=== PATIENT | female | born 1990 | race Hispanic/Latino ===

== ENCOUNTER 2017-05-29 17:13 | Emergency (ER) | payer OTHER ==
[2017-05-29 17:22] VITALS: BMI 25.4
[2017-05-29 17:41] VITALS: BP 124/81
--- NOTE | 2017-05-29 18:03 | ED PDOC ---
"Arrival/HPI - General Chief Complaint: Breast Problem Time Seen by Provider: 05/29/17 17:48 Historian: Patient - History of Present Illness Narrative History of Present Illness (Text): 05/29/17 18:00 27 y/o female, no significant pmh, post 9 months, c/o bilateral breast pain x 5 months. Pt. stated she was breast feeding about 5 months ago, stop breast feeding, been having bilateral breast engorging and pain, no numbness or tingling, no night sweat, no dizziness, no rash, no night sweat, no numbness or tingling, no other medical or psychological complaints. Past Medical History - Provider Review Nursing Documentation Reviewed: Yes - Cardiac Hx Cardiac Disorders: No - Pulmonary Hx Respiratory Disorders: No - Neurological Hx Neurological Disorder: No - HEENT Hx HEENT Disorder: No - Renal Hx Renal Disorder: No - Endocrine/Metabolic Hx Endocrine Disorders: No - Hematological/Oncological Hx Blood Disorders: No - Integumentary Hx Dermatological Disorder: No - Musculoskeletal/Rheumatological Hx Musculoskeletal Disorders: No - Gastrointestinal Hx Gastrointestinal Disorders: No - Genitourinary/Gynecological Hx Genitourinary Disorders: No - Psychiatric Hx Psychophysiologic Disorder: No Hx Substance Use: No Family/Social History - Physician Review Nursing Documentation Reviewed: Yes Family/Social History: Unknown Family HX Smoking Status: Current Some Days Smoker Hx Alcohol Use: No Hx Substance Use: No Allergies/Home Meds Allergies/Adverse Reactions: Allergies No Known Allergies Allergy (Verified 05/29/17 17:22) Review of Systems - Review of Systems Constitutional: absent: Fatigue, Fevers Eyes: absent: Vision Changes ENT: absent: Hearing Changes Respiratory: absent: SOB, Cough Cardiovascular: absent: Chest Pain Gastrointestinal: absent: Abdominal Pain, Diarrhea, Nausea, Vomiting Musculoskeletal: absent: Arthralgias, Back Pain, Myalgias Skin: absent: Rash, Pruritis Neurological: absent: Headache, Dizziness Psychiatric: absent: Anxiety, Depression Physical Exam Vital Signs Reviewed: Yes Vital Signs Temp Pulse Resp BP Pulse Ox 05/29/17 17:38 98.9 F 73 18 124/81 97 Temperature: Afebrile Blood Pressure: Normal Pulse: Regular Respiratory Rate: Normal Appearance: Positive for: Well-Appearing, Non-Toxic, Comfortable Pain Distress: Mild Mental Status: Positive for: Alert and Oriented X 3 - Systems Exam Head: Present: Atraumatic, Normocephalic Pupils: Present: PERRL Extroacular Muscles: Present: EOMI Conjunctiva: Present: Normal Mouth: Present: Moist Mucous Membranes Neck: Present: Normal Range of Motion Respiratory/Chest: Present: Clear to Auscultation, Good Air Exchange. No: Respiratory Distress, Accessory Muscle Use Cardiovascular: Present: Regular Rate and Rhythm, Normal S1, S2. No: Murmurs Abdomen: Present: Normal Bowel Sounds. No: Tenderness, Distention, Peritoneal Signs, Rebound, Guarding Breast/Axillary: Present: Tender to Palpation (bilateral lateral aspects breast noted with no erythematous or cellulitis, no streaking or ulcer. 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 No: Axillary Lymphad, Discoloration, Erythema, Fluctuance, Masses, Nipple Discharge, Swelling, Symmetrical Back: Present: Normal Inspection Upper Extremity: Present: Normal Inspection. No: Cyanosis, Edema Lower Extremity: Present: Normal Inspection. No: Edema Neurological: Present: GCS=15, CN II-XII Intact, Speech Normal Skin: Present: Warm, Dry, Normal Color. No: Rashes Psychiatric: Present: Alert, Oriented x 3, Normal Insight, Normal Concentration Medical Decision Making ED Course and Treatment: 05/29/17 18:03 -Will obtain breast sonogram -Toradol IM for pain -Observe and reassess 05/29/17 20:04 -Breast sonogram show no acute findings. -Pain resolved, feeling much better, will discharge home. -Discharge home with naproxen, bed rest, follow up with your own pmd and obgyn within 2 days, return to the ER for any new or worsening signs or symptoms. - RAD Interpretation Radiology Orders: 05/29/17 17:58 BREAST BILATERAL [US] Stat CLINICAL HISTORY: 27 years old, female; Pain; Breast pain; Right; Additional info: Bilateral breast pain x 5 months, rt. >lt. TECHNIQUE: Complete real time ultrasound of all four quadrants of the right breast and the retroareolar region, including ultrasound of the axilla when performed. COMPARISON: No relevant prior studies available. FINDINGS: Solid nodules: None. Cystic masses: None. Architectural distortion: None. Acoustical shadowing: None. Skin thickening: None. Axillary adenopathy: None. IMPRESSION: No sonographic evidence of malignancy. EXAM: US Left Breast, Complete CLINICAL HISTORY: 27 years old, female; Pain; Breast pain; Right; Additional info: Bilateral breast pain x 5 months, rt. >lt. TECHNIQUE: Complete real time ultrasound of all four quadrants of the left breast and the retroareolar region, including ultrasound of the axilla when performed. ALEX ALFONSO | Final Radiology Report CONFIDENTIALITY STATEMENT This report is intended only for use by the referring physician, and only in accordance with law. If you received this in error, call [phone]. Page 2 of 2 COMPARISON: No relevant prior studies available. FINDINGS: Solid nodules: None. Cystic masses: None. Architectural distortion: None. Acoustical shadowing: None. Skin thickening: None. Axillary adenopathy: None. IMPRESSION: No sonographic evidence of malignancy. Thank you for allowing us to participate in the care of your patient. Dictated and Authenticated by: Andrew Fields MD 05/29/2017 7:41 PM Eastern Time ([place] & [place]) Manager Integration: Radiologist - Medication Orders Current Medication Orders: Discontinued Medications Ketorolac Tromethamine (Toradol) 60 mg IM STAT STA Stop: 05/29/17 18:55 Last Admin: 05/29/17 19:16 Dose: 60 mg MAR Pain Assessment Document 05/29/17 19:16 [email or web address] (Rec: 05/29/17 19:17 [email or web address] [facility] [id number]) Pain Reassessment Is this a pain reassessment? No Sleep Is patient sleeping during reassessment? No Presence of Pain Presence of Pain Yes Pain Scale Used Pain Scale Used Numeric Location Left, Right or Bilateral Right Pain Location Body Site Breast Description Description Constant Intensity of Pain at present 6 Pain Behavior Facial Grimacing Aggravating Factors Changing Position Alleviating Factors/Management Position Change Techniques Alleviating Factors Medication IM Administration Charges Document 05/29/17 19:16 [email or web address] (Rec: 05/29/17 19:17 [email or web address] [facility] [id number]) Injection Site MAR Injection Site Right Deltoid Charges for Administration # of IM Administrations 1 - PA / ELECTRIC METER INSTALLER / Resident Statement MD/DO has reviewed & agrees with the documentation as recorded. Disposition/Present on Arrival - Present on Arrival Any Indicators Present on Arrival: No History of DVT/PE: No History of Uncontrolled Diabetes: No Urinary Catheter: No History of Decub. Ulcer: No History Surgical Site Infection Following: None - Disposition Have Diagnosis and Disposition been Completed?: Yes Diagnosis: Pain of both breasts Disposition: HOME/ ROUTINE Disposition Time: 18:04 Patient Plan: Discharge Patient Problems: Current Active Problems Problem Status Onset Pain of both breasts Acute Condition: GOOD Discharge Instructions (ExitCare): Chest Pain (ED) Additional Instructions: -Discharge home with naproxen, bed rest, follow up with your own pmd and obgyn within 2 days, return to the ER for any new or worsening signs or symptoms. Prescriptions: Naproxen 500 mg PO BID PRN #20 tab PRN Reason: Other Referrals: Shaik Krishnamurthy MD [Primary Care Provider] - Follow up with primary Herlinda Daivs MD [Medical Doctor] - Follow up with primary Forms: [facility] (Panamanian), WORK NOTE"
--- NOTE | 2017-05-29 19:41 | US ---
EXAM: US Right Breast, Complete CLINICAL HISTORY: 27 years old, female; Pain; Breast pain; Right; Additional info: Bilateral breast pain x 5 months, rt. >lt. TECHNIQUE: Complete real time ultrasound of all four quadrants of the right breast and the retroareolar region, including ultrasound of the axilla when performed. COMPARISON: No relevant prior studies available. FINDINGS: Solid nodules: None. Cystic masses: None. Architectural distortion: None. Acoustical shadowing: None. Skin thickening: None. Axillary adenopathy: None. IMPRESSION: No sonographic evidence of malignancy. EXAM: US Left Breast, Complete CLINICAL HISTORY: 27 years old, female; Pain; Breast pain; Right; Additional info: Bilateral breast pain x 5 months, rt. >lt. TECHNIQUE: Complete real time ultrasound of all four quadrants of the left breast and the retroareolar region, including ultrasound of the axilla when performed. COMPARISON: No relevant prior studies available. FINDINGS: Solid nodules: None. Cystic masses: None. Architectural distortion: None. Acoustical shadowing: None. Skin thickening: None. Axillary adenopathy: None.
[2017-05-29 20:11] VITALS: PULSE 76; TEMP 98; O2SAT 99
[2017-05-29 20:18] VITALS: RESP 18
== END 2017-05-29 20:18 | disposition home or self-care (01) ==
LOC: ED 17:13 → MERGE 17:13 → ED 20:18
DX: N64.4 Mastodynia (principal)
CPT/HCPCS: 76641; 96372; 99283; J1885

== ENCOUNTER 2018-03-23 13:45 | Emergency (ER) | payer MEDICAID, OTHER ==
[2018-03-23 14:26] VITALS: BMI 23.4
[2018-03-23 14:28] VITALS: BP 117/75; PULSE 50; RESP 18; TEMP 98; O2SAT 98
--- NOTE | 2018-03-23 15:27 | ED PDOC ---
Arrival/HPI - General Chief Complaint: Abdominal Pain Time Seen by Provider: 03/23/18 14:09 Historian: Patient - History of Present Illness Narrative History of Present Illness (Text): 03/23/18 15:00 28 year old female, with no significant past medical history, presents to the Emergency department complaining of worsening suprapubic abdominal pain since 1 month. Patient informs associated intermittent diarrhea since past week but denies any fever, nausea or vomiting. Patient reports visiting [facility] [place] with the presented symptoms yesterday and was discharged home with treatment for UTI. Patient believes [facility] [place] did not provide her with additional medical intervention, prompting her to present to [facility] [place] today for evaluation. Patient denies any other associated somatic complaints. Patient denies any vaginal bleeding or vaginal discharge. Patient states she was tested for STD 4 months ago with negative findings. Patient reports her LNMP was 1 month ago. Patient denies any chest pain, shortness of breath, headache, dizziness, hematuria or any other complaints. Time/Duration: < month Symptom Onset: Gradual Symptom Course: Unchanged Quality: Aching Activities at Onset: Light Context: Home Past Medical History - Provider Review Nursing Documentation Reviewed: Yes - Infectious Disease Hx of Infectious Diseases: None - Cardiac Hx Cardiac Disorders: No - Pulmonary Hx Respiratory Disorders: No - Neurological Hx Neurological Disorder: No - HEENT Hx HEENT Disorder: No - Renal Hx Renal Disorder: No - Endocrine/Metabolic Hx Endocrine Disorders: No - Hematological/Oncological Hx Blood Disorders: Yes Hx Anemia: Yes - Integumentary Hx Dermatological Disorder: No - Musculoskeletal/Rheumatological Hx Musculoskeletal Disorders: No - Gastrointestinal Hx Gastrointestinal Disorders: No - Genitourinary/Gynecological Hx Genitourinary Disorders: No - Psychiatric Hx Psychophysiologic Disorder: No Hx Substance Use: No - Surgical History Other/Comment: BBL 1 year ago, lipo 360 July 2017 - Anesthesia Hx Anesthesia: Yes Hx Anesthesia Reactions: No Family/Social History - Physician Review Nursing Documentation Reviewed: Yes Family/Social History: Unknown Family HX Smoking Status: Never Smoked Hx Alcohol Use: No Hx Substance Use: No Allergies/Home Meds Allergies/Adverse Reactions: Allergies No Known Allergies Allergy (Verified 03/23/18 14:26) Home Medications: Home Meds Medication Instructions Recorded Confirmed RX: No Known Home Med 02/20/18 03/23/18 Review of Systems - Physician Review All systems were reviewed & negative as marked: Yes - Review of Systems Constitutional: absent: Fevers Respiratory: absent: SOB, Cough Cardiovascular: absent: Chest Pain Gastrointestinal: Abdominal Pain, Diarrhea. absent: Nausea, Vomiting Genitourinary Female: absent: Dysuria, Urine Output Changes Musculoskeletal: absent: Back Pain, Neck Pain Skin: absent: Rash Neurological: absent: Headache, Dizziness Physical Exam Vital Signs Reviewed: Yes Vital Signs Temp Pulse Resp BP Pulse Ox 03/23/18 14:27 98.0 F 50 L 18 117/75 98 Temperature: Afebrile Blood Pressure: Normal Pulse: Bradycardic Respiratory Rate: Normal Appearance: Positive for: Well-Appearing, Non-Toxic, Comfortable Pain Distress: None Mental Status: Positive for: Alert and Oriented X 3 - Systems Exam Head: Present: Atraumatic, Normocephalic Pupils: Present: PERRL Extroacular Muscles: Present: EOMI Conjunctiva: Present: Normal Neck: Present: Normal Range of Motion Respiratory/Chest: Present: Clear to Auscultation, Good Air Exchange. No: Respiratory Distress, Accessory Muscle Use Cardiovascular: Present: Regular Rate and Rhythm, Normal S1, S2. No: Murmurs Abdomen: Present: Tenderness (mild suprapubic tenderness). No: Distention, Peritoneal Signs Back: Present: Normal Inspection Upper Extremity: Present: Normal Inspection. No: Cyanosis, Edema Lower Extremity: Present: Normal Inspection. No: Edema Neurological: Present: GCS=15, CN II-XII Intact, Speech Normal Skin: Present: Warm, Dry, Normal Color. No: Rashes Psychiatric: Present: Alert, Oriented x 3, Normal Insight, Normal Concentration Medical Decision Making ED Course and Treatment: 03/23/18 15:15 Impression: 28 year old female presents to the Emergency department complaining of abdominal pain and diarrhea. Plan: -- Toradol -- US -- Reassess and disposition Prior Visits: Notes and results from previous visits were reviewed. Progress Notes: Patient eloped prior to receiving imaging study. - RAD Interpretation Radiology Orders: 03/23/18 15:15 PELVIC NON OB B SCAN LIMITED [US] Stat - Medication Orders Current Medication Orders: Ketorolac Tromethamine (Toradol) 60 mg IM STAT STA Stop: 03/23/18 15:20 - Scribe Statement The provider has reviewed the documentation as recorded by the Scribe Wilder Valenzuela. All medical record entries made by the Scribe were at my direction and personally dictated by me. I have reviewed the chart and agree that the record accurately reflects my personal performance of the history, physical exam, medical decision making, and the department course for this patient. I have also personally directed, reviewed, and agree with the discharge instructions and disposition. Disposition/Present on Arrival - Present on Arrival Any Indicators Present on Arrival: No History of DVT/PE: No History of Uncontrolled Diabetes: No Urinary Catheter: No History of Decub. Ulcer: No History Surgical Site Infection Following: None - Disposition Have Diagnosis and Disposition been Completed?: Yes Diagnosis: Suprapubic pain Disposition: ELOPEMENT - ER ONLY Disposition Time: 16:39 Condition: STABLE Forms: [facility] (Turkmen)
== END 2018-03-23 16:38 | disposition left against medical advice (07) ==
LOC: ED 13:45
DX: R10.30 Lower abdominal pain, unspecified (principal)
CPT/HCPCS: 96372; 99283; J1885

== ENCOUNTER 2018-05-02 20:39 | Emergency (ER) | payer OTHER ==
[2018-05-02 20:41] VITALS: BMI 23.4
== END 2018-05-02 20:55 | disposition left against medical advice (07) ==
LOC: ED 20:39
DX: Z02.89 Encounter for other administrative examinations (principal); Y09 Assault by unspecified means